=== PATIENT | female | born 2000 | race Caucasian/White ===

== ENCOUNTER 2024-09-30 11:53 | Emergency (ER) | payer BC, OTHER ==
[~2024-09-30] VITALS: Ht 154.9 cm; Wt 54.0 kg
--- NOTE | 2024-09-30 12:25 | ED.PDOC ---
GI ASSESSMENT HPI Comments 23 y.o female presents to the ED for a chief complaint of abdominal pain associated with nausea that started 6 days ago. Patient reports pain is constant, presents with dry heaving and rates pain a 8/10. Patient was seen at urgent care 2 days ago and was told she needed an H.Pylori test to r/o infection. Patient reports similar pain one year ago but is unsure of diagnosis then. She denies any diarrhea, fever, chills. Patient does mention using diego noman daily. Time Seen by MD: 12:15 Reviewed Notes: Nurses Notes, Medications, Allergies Allergies: Coded Allergies: NO KNOWN ALLERGIES (Unverified , 09/30/24) Home Meds Active Scripts Pantoprazole Sodium Sesquihydr (Protonix) 40 Mg Tab, 40 MG PO DAILY, #30 TAB Prov:IMER RAMOS MD 09/30/24 Ondansetron Odt 4MG Tab (ZOFRAN PO) 4 Mg Tb, 4 MG PO Q8HP PRN for 6 Days, #18 TAB ODT TAB-DISSOLVE IN MOUTH, THEN SWALLOW Prov:IMER RAMOS MD 09/30/24 Information Source: Patient Mode of Arrival: Ambulatory Timing: Days (6) Duration: Since onset Quality: Aching Vomitus: None Stool: Normal Severity: Moderate Recent: None Pain Location: Diffuse Associated sign and symptoms: Nausea, Abdominal Pain Past Medical History PAST MEDICAL HISTORY: Denies Surgical History: Denies all surgeries SOCIAL INSURANCE ADVISER History: No Pertinent SOCIAL INSURANCE ADVISER History Family History Family History: Reviewed,noncontributory to illness, No family hx of Cancer, No family hx of DM, No family hx of Heart anastacia, No family hx of HTN, No family hx ofKidney anastacia, No family hx of Liver anastacia, No family hx of Lung anastacia, No family hx of Stroke Social History Smoker: Non-Smoker Alcohol: Denies ETOH Use Drugs: Marijuana Lives In: Home Constitutional: denies: chills, diaphoresis, fatigue, fever, malaise, sweats, weakness, others EENTM: denies: blurred vision, double vision, ear bleeding, ear discharge, ear drainage, ear pain, ear ringing, eye pain, eye redness, hearing loss, mouth pain, mouth swelling, nasal discharge, nose bleeding, nose congestion, nose pain, photophobia, tearing, throat pain, throat swelling, voice changes, others Respiratory: denies: cough, hemoptysis, orthopnea, SOB at rest, shortness of breath, SOB with excertion, stridor, wheezing, others Cardiovascular: denies: chest pain, dizzy spells, diaphoresis, Dyspnea on exertion, edema, irregular heart beat, left arm pain, lightheadedness, palpitations, PND, syncope, others Gastrointestinal: reports: abdominal pain, nausea; denies: abdomen distended, blood streaked bowels, constipated, diarrhea, dysphagia, difficulty swallowing, hematemesis, melena, poor appetite, poor fluid intake, rectal bleeding, rectal pain, vomiting, others Genitourinary: denies: abnormal vagina bleeding, burning, dyspareunia, dysuria, flank pain, frequency, hematuria, incontinence, pain, , vagina discharge, urgency, others Neurological: denies: dizziness, fainting, headache, left sided numbness, left sided weakness, numbness, paresthesia, pre-existing deficit, right sided numbness, right sided weakness, seizure, speech problems, tingling, tremors, weakness, others Musculoskeletal: denies: back pain, gout, joint pain, joint swelling, muscle pain, muscle stiffness, neck pain, others Integumetry: denies: bruises, change in color, change in hair/nails, dryness, laceration, lesions, lumps, rash, wounds, others Allergic/Immunocompromised: denies: Difficulty Healing, Frequent Infections, Hives, Itching, others Hematologic/Lymphatic: denies: anemia, blood clots, easy bleeding, easy bruising, swollen glands, others Endocrine: denies: excessive hunger, excessive sweating, excessive thirst, excessive urination, flushing, intolerance to cold, intolerance to heat, unexplained weight gain, unexplained weight loss, others Psychiatric: denies: anxiety, bipolar disorder, depression, hopeless, panic disorder, schizophrenia, sleepless, suicidal, others All Other Systems: Reviewed and Negative Physical Exam General Appearance: Mild Distress HEENT: Normal ENT Inspection, Pharynx Normal, TMs Normal Neck: Full Range of Motion, Non-Tender, Normal, Normal Inspection Respiratory: Chest Non-Tender, Lungs Clear, No Accessory Muscle Use, No Respiratory Distress, Normal Breath Sounds Cardiovascular: No Edema, No JVD, No Murmur, No Gallop, Normal Peripheral Pulses, Regular Rate/Rhythm Breast Exam: Deferred Gastrointestinal: No Organomegaly, Non Tender, No Pulsatile Mass, Normal Bowel Sounds, Soft Genitalia: Deferred Pelvic: Deferred Rectal: Deferred Extremities: No calf tenderness, Normal capillary refill, Normal inspection, Normal range of motion, Non-tender, No pedal edema Musculoskeletal : Apperance: Normal Neurologic: Alert, 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 Was a procedure done?: No GI differential Dx Differential Diagnosis: Esophagitis, Gastroenteritis, Dehydration, Electrolyte Imbalance, Food Poisoning, , Viral X-Ray, Labs, Meds, VS Vital Signs Date Time Temp Pulse Resp B/P (MAP) Pulse Ox O2 Delivery O2 Flow Rate FiO2 09/30/24 16:16 72 16 100 Room Air 09/30/24 16:16 97.9 72 16 116/75 (89) 100 97.9 09/30/24 14:48 98.0 77 18 109/77 (88) 100 98.0 09/30/24 12:10 99.2 91 17 130/77 (94) 99 99.2 Lab Test 09/30/24 13:00 09/30/24 12:26 Range/Units Urine Color Yellow Yellow Urine Clarity Clear Clear Urine pH 5.5 5.0-9.0 Urine Specific [place] 1.028 1.001-1.035 Urine Protein Trace H Negative Urine Ketones 4+ H Negative Urine Blood Negative Negative /uL Urine Nitrite Negative Negative Urine Bilirubin Negative Negative Urine Urobilinogen Normal Negative mg/dL Urine Leukocyte Esterase 1+ Negative /uL Urine RBC 1 0 - 4 /hpf Urine Microscopic WBC 6 H 0-5 /HPF Urine Squamous Epithelial Cells Few <5 /hpf Urine Bacteria None seen None Seen /hpf Urine Mucus Few None Seen Urine Glucose Normal Normal mg/dL Urine Test Negative Negative Urine Opiates Screen Neg NEGATIVE Urine Fentanyl Screen Neg NEGATIVE Urine Barbiturates Screen Neg NEGATIVE Urine Phencyclidine Screen Neg NEGATIVE Urine Amphetamines Screen Neg NEGATIVE Urine Benzodiazepines Screen Neg NEGATIVE Urine Cocaine Screen Neg NEGATIVE Urine Cannabinoids Screen Pos NEGATIVE White Blood Count 7.1 4.4-10.8 10^3/uL Red Blood Count 5.04 4.0-5.20 10^6/uL Hemoglobin 14.6 12.2-16.2 g/dL Hematocrit 42.0 36.0-46.0 % Mean Corpuscular Volume 83.3 80.0-100.0 fL Mean Corpuscular Hemoglobin 28.9 28.0-32.0 pg Mean Corpuscular Hemoglobin Concent 34.6 32.0-36.0 g/dL Red Cell Distribution Width 12.9 11.8-14.3 % Platelet Count 222 140-450 10^3/uL Mean Platelet Volume 9.0 6.9-10.8 fL Neutrophils (%) (Auto) 69.7 37.0-80.0 % Lymphocytes (%) (Auto) 22.2 10.0-50.0 % Monocytes (%) (Auto) 6.5 0.0-12.0 % Eosinophils (%) (Auto) 0.5 0.0-7.0 % Basophils (%) (Auto) 1.1 0.0-2.0 % Neutrophils # (Auto) 4.9 1.6-8.6 10 ^3/uL Lymphocytes # (Auto) 1.6 0.4-5.4 10 ^3/uL Monocytes # (Auto) 0.5 0-1.3 10 ^3/uL Eosinophils # (Auto) 0 0-0.8 10 ^3/uL Basophils # (Auto) 0.1 0-0.2 10 ^3/uL Nucleated Red Blood Cells 0.0 % Sodium Level 140 136-145 mmol/L Potassium Level 3.6 3.5-5.1 mmol/L Chloride Level 107 98-107 mmol/L Carbon Dioxide Level 20 20-31 mmol/L Anion Gap 13 5-15 Blood Urea Nitrogen 12 9-23 mg/dL Creatinine 0.90 0.550-1.02 mg/dL Glomerular Filtration Rate Calc 91 >90 mL/min BUN/Creatinine Ratio 13.3 10.0-20.0 Serum Glucose 69 L 74-106 mg/dL Calcium Level 9.3 8.7-10.4 mg/dL Total Bilirubin 1.0 0.2-1.0 mg/dL Aspartate Amino Transferase (AST) 33 13-40 U/L Alanine Aminotransferase (ALT) 44 H 7-40 U/L Alkaline Phosphatase 48 46-116 U/L Total Protein 7.5 5.7-8.2 g/dL Albumin 4.8 3.2-4.8 g/dL Current Medications Medications (Trade) Dose Ordered Sig/Kim Route Start Time Stop Time Status Last Admin Sodium Chloride 1,000 ml @ 1,000 mls/hr Q1H ONCE IV 09/30/24 12:30 09/30/24 13:29 DC 09/30/24 16:22 Prochlorperazine Edisylate (Compazine Inj) 10 mg ONCE ONCE IV 09/30/24 12:30 09/30/24 12:31 DC 09/30/24 16:25 Pantoprazole Sodium (Protonix) 40 mg ONCE ONCE IV 09/30/24 12:30 09/30/24 12:31 DC 09/30/24 16:26 Ceftriaxone Sodium 50 ml @ 100 mls/hr ONCE ONCE IV 09/30/24 16:45 09/30/24 17:14 DC 09/30/24 16:45 IV Hep-Lock was established. The patient was given 1 L bolus of normal saline The patient was given Protonix 40 mg IV push The patient was given Compazine 10 mg IV push The patient has a UTI and was started on Rocephin The patient's CBC and chemistry panel are within normal limits The urine tox is positive for marijuana The urine test is positive for the UTI The patient is also being placed on Cipro The patient is discharged Time of 1ST Reevaluation: 12:25 Reevaluation 1ST: Unchanged Patient Education/Counseling: Diagnosis, Treatment, Prognosis, Need For Follow Up Family Education/Counseling: No Family Present SEPSIS Sepsis Screen Physician Orders Heplock Iv (09/30/24 ) Vital Signs Date Time Temp Pulse Resp B/P (MAP) Pulse Ox O2 Delivery O2 Flow Rate FiO2 09/30/24 16:16 72 16 100 Room Air 09/30/24 16:16 97.9 72 16 116/75 (89) 100 97.9 09/30/24 14:48 98.0 77 18 109/77 (88) 100 98.0 09/30/24 12:10 99.2 91 17 130/77 (94) 99 99.2 Laboratory Tests Test 09/30/24 12:26 White Blood Count 7.1 10^3/uL (4.4-10.8) Medications Medications Dose Ordered Sig/Kim Route Start Time Stop Time Status Last Admin Dose Admin Ceftriaxone Sodium 50 ml @ 100 mls/hr ONCE ONCE IV 09/30/24 16:45 09/30/24 17:14 DC 09/30/24 16:45 Pantoprazole Sodium 40 mg ONCE ONCE IV 09/30/24 12:30 09/30/24 12:31 DC 09/30/24 16:26 Prochlorperazine Edisylate 10 mg ONCE ONCE IV 09/30/24 12:30 09/30/24 12:31 DC 09/30/24 16:25 Sodium Chloride 1,000 ml @ 1,000 mls/hr Q1H ONCE IV 09/30/24 12:30 09/30/24 13:29 DC 09/30/24 16:22 Departure 1 Departure Time of Disposition: 18:05 Impression: Primary Impression: Cannabinoid hyperemesis syndrome Additional Impression: Urinary tract infection Qualified Codes: N30.00 - Acute cystitis without hematuria Disposition: 01 HOME / SELF CARE / HOMELESS Condition: Fair e-Prescriptions Pantoprazole Sodium Sesquihydr (Protonix) 40 Mg Tab 40 MG PO DAILY, #30 TAB Prov: IMRE RAMOS MD 09/30/24 Ondansetron Odt 4MG Tab (ZOFRAN PO) 4 Mg Tb 4 MG PO Q8HP PRN for 6 Days, #18 TAB ODT TAB-DISSOLVE IN MOUTH, THEN SWALLOW Prov: IMER RAMOS MD 09/30/24 Discharged With: Self Critical Care Note Critical Care Time?: No Stability Stability form required: No I personally scribed for IMER RAMOS MD ([email or web address]) on 09/30/24 at 12:25. Electronically submitted by Mariluz Hinson ([facility]). IMER RAMOS MD Sep 30, 2024 12:25
[2024-09-30 12:39] LABS: Hematocrit 42.0 % (36.0-46.0); Hemoglobin 14.6 g/dL (12.2-16.2); Mean Corpuscular Hemoglobin 28.9 pg (28.0-32.0); Mean Corpuscular Volume 83.3 fL (80.0-100.0); Nucleated Red Blood Cells % 0.0 %
[2024-09-30 12:59] LABS: Albumin 4.8 g/dL (3.2-4.8); Alkaline Phosphatase 48 U/L (46-116); Anion Gap 13 (5-15); BUN/Creatinine Ratio 13.3 (10.0-20.0); Bilirubin, Total 1.0 mg/dL (0.2-1.0); Blood Urea Nitrogen 12 mg/dL (9-23); Calcium 9.3 mg/dL (8.7-10.4); Carbon Dioxide 20 mmol/L (20-31); Chloride 107 mmol/L (98-107); Potassium 3.6 mmol/L (3.5-5.1); Sodium 140 mmol/L (136-145); Total Protein 7.5 g/dL (5.7-8.2)
[2024-09-30 13:00] LABS: Alanine Aminotransferase 44 U/L (7-40); Glucose 69 mg/dL (74-106)
[2024-09-30 15:53] LABS: Urine Protein, UAD TRACE (Negative)
[2024-09-30 15:57] LABS: Cannabinoid Screen, Urine Pos (NEGATIVE)
[2024-09-30 15:58] LABS: Amphetamine Screen, Urine Neg (NEGATIVE); Barbiturate Scree,Urine Neg (NEGATIVE); Benzodiazephine Screen, Urine Neg (NEGATIVE); Cocaine Screen, Urine Neg (NEGATIVE); Opiate Scree,Urine Neg (NEGATIVE); Phencyclidine Screen, Urine Neg (NEGATIVE)
[2024-09-30 16:16] VITALS: BP 116/75; PULSE 72; RESP 16; TEMP 97.9; O2SAT 100
[2024-09-30] MEDS: SODIUM CHLORIDE 0.9% 1,000 ML IV ONE (16:22)
[2024-09-30] MEDS: PROCHLORPERAZINE EDISYLATE 5 MG/ML 2ML VIAL IV ONE (16:25)
[2024-09-30] MEDS: PANTOPRAZOLE 40 MG/10 ML VIAL INJ IV ONE (16:26)
[2024-09-30] MEDS: cefTRIAXone 1GM/50ML D5W 50 ML IV ONE (16:45)
[2024-09-30] MEDS ORDERED: PANT40TA2 PO (18:05)
[2024-09-30] MEDS ORDERED: ZOFR4T PO (18:05)
[2024-09-30] MEDS ORDERED: CIPR-173 PO (18:07)
== END 2024-09-30 18:46 | disposition home or self-care (01) ==
LOC: ER 11:53
DX: F12.188 Cannabis abuse with other cannabis-induced disorder (principal); N39.0 Urinary tract infection, site not specified; Z79.899 Other long term (current) drug therapy
CPT/HCPCS: 36415; 80053; 80307; 81001; 81025; 85025; 96365; 96375; 99284; J0696; J0780; J2470; J7030